=== PATIENT | male | born 1935 | race Caucasian/White ===

== ENCOUNTER 2020-10-21 12:38 | Inpatient (IN) | payer OTHER ==
[~2020-10-21] VITALS: Ht 180.3 cm; Wt 71.4 kg
[2020-10-21 12:42] VITALS: BP 115/56
[2020-10-21 13:03] LABS: ABSOLUTE NEUTROPHILS 5.7 thou/uL (1.4-8.2); EOSINOPHILS 1.4 % (0.0-3.0); HEMATOCRIT 37.7 % (42.0-52.0); HEMOGLOBIN 12.3 gm/dL (14.0-18.0); LYMPHOCYTES 15.3 % (24.0-44.0); MCH 32.4 pg (26.0-34.0); MCHC 32.7 g/dL (28.0-37.0); MONOCYTES 6.1 % (1.0-8.0); PLATELET COUNT 173 thou/uL (150-400); POLYS 76.2 % (36.0-66.0); RBC 3.81 mil/uL (4.50-6.00); RDW 14.7 % (10.5-14.5); WBC 7.5 thou/uL (4.0-11.0)
[2020-10-21 13:14] LABS: CALCIUM 8.8 mg/dL (8.5-10.1); CREATININE 1.4 mg/dL (0.7-1.3); POTASSIUM 4.8 mmol/L (3.5-5.1)
[2020-10-21 13:20] LABS: ALBUMIN 2.6 g/dL (3.4-5.0); TOTAL BILIRUBIN 0.4 mg/dL (0.2-1.0); TOTAL PROTEIN 6.6 g/dL (6.4-8.2)
[2020-10-21 13:25] LABS: INR 1.11
[2020-10-21 16:01] VITALS: BP 102/49
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
[2020-10-21] MEDS ORDERED: CALCIUM PO ×2 (16:44)
[2020-10-21] MEDS ORDERED: METOPROLOL PO ×2 (16:45)
[2020-10-21] MEDS ORDERED: SYNTHROID PO ×2 (16:45)
[2020-10-21] MEDS ORDERED: MECLIZINE PO ×2 (16:45)
[2020-10-21 16:46] VITALS: BP 106/52
[2020-10-21] MEDS ORDERED: ADULT LOW DOSE81 MG PO ×2 (16:46)
[2020-10-21] MEDS ORDERED: LEVOTHYROXINE25 MC1 PO ×2 (17:28)
[2020-10-21] MEDS ORDERED: MECLIZINE HCL25 M1 PO ×2 (17:28)
[2020-10-21] MEDS ORDERED: TOPROL XL25 MG PO ×2 (17:29)
[2020-10-21] MEDS ORDERED: DULCOLAX STOOL100 M1 PO ×2 (17:30)
[2020-10-21] MEDS ORDERED: ATORVASTATIN CA80 MG PO ×2 (17:31)
[2020-10-21 17:38] VITALS: BP 112/54
--- NOTE | 2020-10-21 18:41 | NUR ---
ASSUMED PT CARE AT 1700 FROM ED. PT IS ALERT & ORIENTED X4. PT HAS IV SITE ON R FA SALINE LOCKED. FINISHED ADMISSION AND UPDATED MEDICATION LISTS. PT STATED HE USES WALKER, WHEELCHAIR AND O2 AT HOME. PT WILL BE NPO AFTER MIDNIGHT FOR EGD TOMORROW MORNING. PT HAS BEDSIDE COMMODE. PT FAMILY WAS AT THE BEDSIDE. NO C/O OF PAIN, NAUSEA AND VOMITING. PT ON THE BED, BED ON THE LOWEST POSITION, SIDE RAILS UP, CALL LIGHT WITHIN REACH. WILL CONTINUE TO MONITOR PT. FOLLOW POC.
[2020-10-21 19:39] VITALS: BP 99/62
[2020-10-22 02:24] LABS: HEMATOCRIT 29.6 % (42.0-52.0); MCH 32.7 pg (26.0-34.0); MCHC 32.9 g/dL (28.0-37.0); MCV 99.4 fL (80.0-100.0); RBC 2.98 mil/uL (4.50-6.00); RDW 14.8 % (10.5-14.5); WBC 7.4 thou/uL (4.0-11.0)
[2020-10-22 02:33] LABS: HEMOGLOBIN 9.8 gm/dL (14.0-18.0)
[2020-10-22 02:47] LABS: ALBUMIN 1.9 g/dL (3.4-5.0); CALCIUM 7.6 mg/dL (8.5-10.1); CREATININE 1.1 mg/dL (0.7-1.3); TOTAL BILIRUBIN 0.2 mg/dL (0.2-1.0); TOTAL PROTEIN 5.1 g/dL (6.4-8.2)
--- NOTE | 2020-10-22 07:08 | EKG ---
[address] [address] ELECTROCARDIOGRAM REPORT Name: ELIZABETH SUÁREZ Room #: 455-P [facility] IN ..#: [id number] Admission: 10/21/20 Attend Phys: Juan Carlos Romero MD Discharge: Date of : 37 Report #: [id number] [facility] ED Test Date: 2020-10-21 Test Time: 12:50:20 Pat Name: ELIZABETH SUÁREZ Department: Room: [facility] Gender: M Doctor Of Veterinary Medicine: leo : 1935 Requested By: Micky Vilchis Order Number: [id number] MD: Gopi aRmesh Measurements Intervals [place] Rate: 72 P: 34 OK: 216 QRS: 108 QRSD: 95 T: 56 QT: 387 QTc: 424 Interpretive Statements Sinus arrhythmia Multiple ventricular premature complexes Borderline prolonged OK interval Right axis deviation Nonspecific T abnormalities, anterior leads No previous ECG available for comparison Electronically Signed On 10-22-2020 7:08:43 CDT by Gopi Ramesh [email or web address] <ELECTRONICALLY SIGNED> By: Gopi Ramesh MD, [facility] 10/22/20 0708 1250 1250 Gopi Ramesh MD, FACC /EPI
--- NOTE | 2020-10-22 07:45 | NUR ---
Pt. rested quietly during the night when checked on during frequent rounds. He offers o c/o pain. Bed alarm is on.
[2020-10-22 09:03] VITALS: BP 120/65
--- NOTE | 2020-10-22 11:54 | NUR ---
PT ADMITTED RELATED TO LOWER GI BLEED AND WEAKNESS. CM REVIEWED CHART AND SPOKE WITH CARE TEAM. CM MET WITH PT AT BEDSIDE THIS DAY. PT APPEARS TO BE A&O X4. CM ROLE INTRODUCED. PT INDICATED HE RESIDES IN A TRAILOR ALONE WITH 5 STEPS TO ENTER AND NO STEPS INSIDE. PT INDICATED HE HAS A 4WW FOR USE AT HOME. PT HAS HOME 02 THROUGH [facility] AND HAD WORN 3L AND BUMPS IT UP WHEN HE AMBULATES. 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 PT INDICATED HIS PCP IS DR. MARTÍN SPAULDING. PT INDICATED HE HAD BEEN AT [facility] LAST WEEK. PT INDICATED HE HAD [facility] IN THE PAST AND WOULD WANT TO USE THEM UPON DC. CARE TEAM INDICATED THAT PT WILL LIKELY BE MEDIALLY STABLE TO DC HOME WITH HH TOMORROW. CM FAXED REFERRAL TO [facility] THEY CAN ACCEPT TO WITH [facility] SOC RASHAUN OR PETE. FAX ORDERS TO .
--- NOTE | 2020-10-22 11:55 | NUR ---
A/O X 4. On 3 L 02 @ home. X1 with walker. Stool is still dark. Right forearm and right AC IV patent, and flushes well, dressing dry, clean and intact. NS fluids infusing @ 75mls/hR. He is going to have a colonoscopy today. EGD completed.
[2020-10-22 15:13] VITALS: BP 103/47
--- NOTE | 2020-10-22 17:17 | NUR ---
Patient goes by "CARLOS". A/O X 4 on 3 L o2 via nasal cannula and also on at home. One assist with a walker. Stools dark. Right forearm and Right AC patent, dressing dry, clean and intact. Patient is set to d/c home tomorrow with HH per case management.
[2020-10-22 19:55] VITALS: BP 121/44
--- NOTE | 2020-10-23 04:16 | NUR ---
TODAY THIS PT HAS BEEN IN HIS ROOM ASLEEP FOR MOST OF THE NIGHT WITH STABLE vs AND NO STATED PAIN. HE HAS BEEN TOLERATING HIS FLUIDS AND 3L OF OXYGEN WELL. HE TRIED TO HAVE A BM BUT TO NO AVAIL. HE DOES HAVE SOME SOB WITH EXERTION. HE HAS BEEN USING THE URINAL WELL.
[2020-10-23 06:17] LABS: HEMATOCRIT 29.4 % (42.0-52.0); HEMOGLOBIN 9.6 gm/dL (14.0-18.0); MCH 32.5 pg (26.0-34.0); MCHC 32.8 g/dL (28.0-37.0); MCV 98.9 fL (80.0-100.0); RBC 2.97 mil/uL (4.50-6.00); RDW 14.5 % (10.5-14.5); WBC 8.3 thou/uL (4.0-11.0)
[2020-10-23 08:02] VITALS: BP 123/49
[2020-10-23] MEDS ORDERED: PROTONIX 20 MG20 M1 PO ×2 (09:05)
--- NOTE | 2020-10-23 12:16 | NUR ---
Assumed pt care this am, pt is weak and is on 3 liters of O2 via NC slight movement pt is SOB. No bleeding noted, diet and medications are tolerated well.
[2020-10-23 17:02] VITALS: BP 115/70
[2020-10-23 20:24] VITALS: BP 134/76
[2020-10-24] VITALS (23 sets, daily range): BP systolic 82–139; BP diastolic 48–94
--- NOTE | 2020-10-24 04:22 | NUR ---
PATIENT AAOX4 RESTING IN HIS ROOM. STATES THAT HE HAS NO PAIN AT THIS TIME. PT STATES THAT HE DOESNOT THINK THAT HE IS READY TO TRANSFER THIS AM. STATES THAT HE IS STILL HAVING DIFFICULTY BREATHING WITH AMBULATION. PT IS CURRENTLY ON 3L NC. PATIENT GETS SHORT OF BREATH WHEN TRYING TO SPEAK WITH STAFF. PT DOES WELL WHEN RESTING AT EASE. NO S/S OF DISTRESS ARE NOTED. PATIENT TOOK MEDICATIONS PRESCRIBED. WILL CONTINUE TO MONITOR FOR CHANGES IN STATUS.
--- NOTE | 2020-10-24 08:22 | NUR ---
DR. CARLOS CONSULTED DUE TO PATIENT WEAKNESS. PATIENT'S INFORMATION REVIEWED THIS DATE BY GANESH THORNTON NP WITH DR. CARLOS. PATIENT IS TOO HIGH LEVEL FOR 5N ACUTE REHAB. HOME WITH HOME HEALTH RECOMMENDED, BUT IF PHYSICIAN FEELS PATIENT IS NOT READY TO RETURN HOME, THEN SKILLED NURING IS RECOMMENDATION. THANK YOU FOR THIS REFERRAL.
[2020-10-24 09:51] LABS: BE(vivo) 6.3 mmol/L (-2 to +3); HCO3 34.7 mmol/L (22.0-26.0); PCO2 72.3 mmHg (35.0-45.0); PO2 99.9 mmHg (80.0-100.0); pH 7.299 (7.360-7.450); sO2 96.7 % (92.0-98.0)
[2020-10-24 09:59] LABS: HEMATOCRIT 31.3 % (42.0-52.0); HEMOGLOBIN 10.3 gm/dL (14.0-18.0); MCH 32.1 pg (26.0-34.0); MCHC 32.8 g/dL (28.0-37.0); MCV 97.8 fL (80.0-100.0); RBC 3.2 mil/uL (4.50-6.00); WBC 10.5 thou/uL (4.0-11.0)
[2020-10-24 10:27] LABS: ANION GAP < 0 mmol/L (7-16); BUN 10 mg/dL (7-18); CALCIUM 7.9 mg/dL (8.5-10.1); CHLORIDE 106 mmol/L (98-107); CO2 36 mmol/L (21-32); CREATININE 1.1 mg/dL (0.7-1.3); GLUCOSE 143 mg/dL (74-106); POTASSIUM 3.5 mmol/L (3.5-5.1); SODIUM 141 mmol/L (136-145)
[2020-10-24 10:31] LABS: BE(vivo) 10.1 mmol/L (-2 to +3); HCO3 35.8 mmol/L (22.0-26.0); PCO2 54.2 mmHg (35.0-45.0); pH 7.438 (7.360-7.450); sO2 62.2 % (92.0-98.0)
--- NOTE | 2020-10-24 12:48 | NUR ---
PT TRANSFERRED TO ROOM 248 IN THE ICU. PT ON BIPAP AT 40% FIO2. PT ORIENTED TO ROOM AND UNIT, BED LOW AND LOCKED, SIDE RAILS UPX 3, CALL LIGHT IN REACH, TELE APPLIED. PT REFUSED SCDS AND DR. BAZZI INFORMED AT BEDSIDE. WILL CONTINUE TO ASSESS.
[2020-10-24 14:54] LABS: BE(vivo) 7.6 mmol/L (-2 to +3); HCO3 33.3 mmol/L (22.0-26.0); pH 7.416 (7.360-7.450); sO2 92.4 % (92.0-98.0)
--- NOTE | 2020-10-24 22:57 | NUR ---
RN WENT TO PLACE NO CODE BRACELET ON PT DR ORDER OF STATUS CHANGE TO NO CODE. PT ASKED WHAT NO CODE MEANT, AND i EXPLAINED THAT IF HEART/BREATHING STOP THERE WOULD BE NO INTERVENTION/NATURAL . PT STATES HE DID NOT UNDERSTAND THAT SAYING NO TO THE VENTILATOR MEANT NO RESUSITATION. IN REGARDS TO HIS BREATHING "STATES HE TIRED OF FIGHTING THIS", BUT WANTS TO BE CODED FOR NOW. DISCUSSED WITH BREAKFAST SERVER, ORDER PLACED FOR FULL CODE, DNI
--- NOTE | 2020-10-24 23:29 | NUR ---
INFORMED PT THAT SPOKE WITH MANAGEMENT ASSISTANT, AND DISCUSSED YOUR WISHES OF NO VENTILATOR, AND WILL RESUSCITATE YOUR HEART IF STOPPED. IN RESPONSE PT SAID "i HAVE BEEN THINKING ABOUT THIS, AND I DO NOT WANT TO CONTINUE FIGHTING THIS. BRING BACK THE BRACELET TO PUT ON ME" REITERATED THE NO CODE BRACELET AND HE SAID "YES". 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 02SAT 98%. INFORMED MANAGEMENT ASSISTANT AND ORDER WAS CHANGED BACK TO NO CODE.
[2020-10-25 00:29] VITALS: BP 114/60
[2020-10-25 05:37] LABS: HEMOGLOBIN 8.6 gm/dL (14.0-18.0); MCH 32.7 pg (26.0-34.0); MCHC 32.9 g/dL (28.0-37.0); MCV 99.3 fL (80.0-100.0); RBC 2.62 mil/uL (4.50-6.00); RDW 14.7 % (10.5-14.5); WBC 2.5 thou/uL (4.0-11.0)
[2020-10-25 05:49] LABS: ANION GAP < 0 mmol/L (7-16); BUN 13 mg/dL (7-18); CALCIUM 7.9 mg/dL (8.5-10.1); CHLORIDE 108 mmol/L (98-107); CO2 37 mmol/L (21-32); GLUCOSE 132 mg/dL (74-106); POTASSIUM 4.4 mmol/L (3.5-5.1); SODIUM 144 mmol/L (136-145)
--- NOTE | 2020-10-25 06:25 | NUR ---
ORDER PER DR TO TRANSFER PT TO 2N-PT SAYS IT IS TOO EARLY TO CALL DAUGHTER, HE WILL CONTACT HER LATER. 02SAT 97 ON BIPAP. STATES BREATHING COMFORTABLE. COLOR REMAINS PALE-NO ACTIVE BLEEDING NOTED, NO STOOLS/EMESIS OR C/O OF PAIN. REPORT CALLED TO KODAK HANSEN. TRANSFER WITH BELONGINGS PHONE, IPAD, CHARGERS, DENTURES, GLASSES, DUFFLE AND TOTE BAGS
--- NOTE | 2020-10-25 07:29 | EKG ---
[address] [address] ELECTROCARDIOGRAM REPORT Name: ELIZABETH SUÁREZ Room #: 216-P [facility] IN ..#: [id number] Admission: 10/21/20 Attend Phys: Juan Carlos Romero MD Discharge: Date of : 37 Report #: [id number] [facility] Test Date: 2020-10-24 Test Time: 09:57:57 Pat Name: ELIZABETH SUÁREZ Department: Room: 216 Gender: M Linoleum Layer: GARETT : 1935 Requested By: Pankaj Womack Order Number: [id number] MD: Gopi Ramesh Measurements Intervals [place] Rate: 102 P: 0 IN: 240 QRS: -24 QRSD: 91 T: 135 QT: 403 QTc: 526 Interpretive Statements Sinus tachycardia Multiple premature complexes, vent & supraven Prolonged IN interval Probable left atrial enlargement Borderline left axis deviation Nonspecific T abnrm, anterolateral leads Prolonged QT interval Compared to ECG 10/21/2020 12:50:20 Prolonged QT interval now present Sinus arrhythmia no longer present Ventricular premature complex(es) no longer present Electronically Signed On 10-25-2020 7:29:41 CDT by Gopi Ramesh [email or web address] <ELECTRONICALLY SIGNED> By: Gopi Ramesh MD, FACC 10/25/20 0729 Gopi Ramesh MD, [facility] /EPI
--- NOTE | 2020-10-25 07:39 | NUR ---
PATIENT TRANSFER TO ICU ON 10/24 D/T INCREASED O2 NEEDS, ON BIPAP. WILL PLACE ON HOLD, REQUEST NEW O.T. ORDERS WHEN APPROPRIATE FOR OT INTERVENTIONS TO RESUME. PATIENT NOW TRANSFER TO CCU BUT STILL NEED NEW ORDERS D/T TRANSFER TO ICU/CHANGE IN MEDICAL STATUS. THANK YOU.
[2020-10-25 08:00] VITALS: BP 127/75
--- NOTE | 2020-10-25 08:43 | NUR ---
Pt TRANSFERRED TO ICU ON 10/24/20 D/T INCREASED O2 NEEDS. D/T TRANSFER TO HIGHER LEVEL OF CARE YESTERDAY AND BACK TO CCU, WILL NEED NEW ORDERS TO RESUME PT INTERVENTIONS IF/WHEN Pt APPROPRIATE TO PARTICIPATE.
[2020-10-25 12:00] VITALS: BP 105/54
--- NOTE | 2020-10-25 15:10 | NUR ---
Patient on continuous BIPAP. He transferred to CCU from . Therapy orders need to be reordered. Updated phys.
[2020-10-25 16:00] VITALS: BP 119/58
--- NOTE | 2020-10-25 17:19 | NUR ---
ASSESSMENT CHARTED - MEDS PER MAY - FANI FLUIDS - UNABLE TO REMOVE BIPAP PT RR UP TO THE 40'S AND WORK OF BREATHING INSCREASES. MEDS PER MAY - IV FLUIDS CONT ORDERED. ACCUCHECKS CHARTED - DR WARREN NOTIFIED THAT BIPAP REMAINED ON STATED WE COULD TRYING OTHER SOURCES PATIENT STATED THAT HE WAS GETTING VERY HUNGRY. FAMILY INTO VISIT THIS SHIFT. NO CO'S AT THE PRESENT TIME.
--- NOTE | 2020-10-25 18:45 | 2DMMODE ---
[facility] [place] [address] 2 D/M-MODE ECHOCARDIOGRAM Name: DEVIJUANELIZABETH Room #: 216-P [facility] IN ..#: [id number] Admission: 10/21/20 Attend Phys: Juan Carlos Romero MD Discharge: Date of : 36 Report #: [id number] THIS REPORT FOR: cc: Britton Hankins MD, Jan MD Lundgren, Craig H. MD [facility] ~ APPROVED REPORT Study performed: 10/25/2020 11:36:15 EXAM: Comprehensive 2D, Doppler, and color-flow Echocardiogram Patient Location: Bedside Room #: 216 Status: routine BSA: 1.89 HR: 58 bpm BP: 114/60 mmHg Rhythm: Bradycardia Other Information Study Quality: Good Indications Diabetes Dyspnea Hypertension/HDD 2D Dimensions RVDd: 51.05 mm IVSd: 9.83 (7-11mm) LVOT Diam: 24.17 (18-24mm) LVDd: 51.05 mm PWd: 10.06 (7-11mm) Ascending Ao: 38.94 (22-36mm) LVDs: 34.53 (25-40mm) Left Atrium: 36.98 (27-40mm) Aortic Root: 34.79 mm IVC: 21.00 mm Volumes Left Atrial Volume (Systole) Single Plane 4CH: 41.65 mL Single Plane 2CH: 56.34 mL LA ESV Index: 30.00 mL/m2 Aortic Valve AoV Peak Christ.: 1.15 m/s AO Peak Gr.: 5.32 mmHg LVOT Max P.12 mmHg [facility] [address] [place] [address] 2 D/M-MODE ECHOCARDIOGRAM Name: ELIZABETH SUÁREZ Room #: 216-P [facility]#: [id number] Admission: 10/21/20 Attend Phys: Juan Carlos Romero MD Discharge: Date of : 36 Report #: [id number] LVOT Max V: 0.88 m/s RUFUS Vmax: 3.51 cm2 Mitral Valve E/A Ratio: 0.7 MV Decel. Time: 381.84 ms MV E Max Christ.: 0.57 m/s MV A Christ.: 0.78 m/s MV PHT: 110.73 ms IVRT: 119.95 ms Pulmonary Valve PV Peak Christ.: 1.05 m/s PV Peak Gr.: 4.41 mmHg Pulmonary Vein P Vein S: 0.41 m/s P Vein A: 0.24 m/s P Vein D: 0.24 m/s P Vein A Dur.: 129.2 msec P Vein S/D Ratio: 1.71 Tricuspid Valve TR Peak Christ.: 3.09 m/s TR Peak Gr.: 38.21 mmHg PA Pressure: 48.00 mmHg Left Ventricle The left ventricle is normal size. There is normal LV segmental wall motion. There is normal left ventricular wall thickness. The left ventricular systolic function is normal. The left ventricular ejection fraction is within the normal range. LVEF is 55%. Mild diastolic dysfunction Right Ventricle Right ventricle is dilated. The right ventricular systolic function is borderline normal. Atria Left atrium is at the upper limits of normal. Right atrium is not well visualized. Aortic Valve The aortic valve is moderately calcified. No aortic regurgitation is present. There is no aortic valvular stenosis. Mitral Valve The mitral valve is normal in structure. Mild mitral regurgitation. No evidence of mitral valve stenosis. [facility] [address] [place] [address] 2 D/M-MODE ECHOCARDIOGRAM Name: ELIZABETH SUÁREZ Vasquez Room #: 216-P [facility] IN [facility]#: [id number] Admission: 10/21/20 Attend Phys: Juan Carlos Romero MD Discharge: Date of : 37 Report #: [id number] Tricuspid Valve The tricuspid valve is normal in structure. There is mild tricuspid regurgitation. Estimated pulmonary artery pressure of 45 mmHg. There is moderate pulmonary hypertension. Pulmonic Valve The pulmonary valve is normal in structure. Mild pulmonic regurgitation. Great Vessels The aortic root is normal in size. IVC is dilated and collapses <50% with inspiration. Pericardium There is no pericardial effusion. <Conclusion> The left ventricular systolic function is normal. There is normal LV segmental wall motion. LVEF is 55%. Mild diastolic dysfunction Right ventricle is dilated. The aortic valve is moderately calcified. No aortic regurgitation or stenosis The mitral valve is normal in structure. Mild mitral regurgitation. There is mild tricuspid regurgitation. Estimated pulmonary artery pressure of 45 mmHg. There is no pericardial effusion. <ELECTRONICALLY SIGNED> By: Sherwin Camarena MD, FACC 10/25/201843 43 43 Sherwin Camarena MD, FACC /INF
[2020-10-25 20:56] VITALS: BP 124/70
[2020-10-26 00:58] VITALS: BP 118/65
--- NOTE | 2020-10-26 03:43 | NUR ---
Assumed pt care at 1900. Pt is alert and oriented. No sign of distress noted in pt. At the start of the shift, Respirattory was able to wean patient from bipap to nasal cannula, 5L. Pt saturation was at 97%. Pt was stable. At bed time, pt was placed back on bipap for sleep. No sign of distress noted. Assessment completed and documented. Scheduled meds administered to pt, tolerated PO intake. No acute events through the night. Continue to monitor. No further needs at this time.
[2020-10-26 05:18] VITALS: BP 125/70
[2020-10-26 08:27] VITALS: BP 125/74
[2020-10-26 11:28] VITALS: BP 133/89
--- NOTE | 2020-10-26 11:35 | NUR ---
met with patient and at bedside. Patient resides at home and on disability. interested in AD and FMLA. FMLA paper work on chart. 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 works at [employer]. Gave information on AD. Patient admits with weakness and GI bleed. Casemgt following
[2020-10-26 16:13] VITALS: BP 105/62
--- NOTE | 2020-10-26 17:37 | NUR ---
Patient evaled by N acute rehab who reports patient has interest in [facility]. Met with patient who reports he is interested in [facility] for rehab. Discussed eval from . patient beleved it was outpatient therapy. He reports he lives too far to transport to/from. Reviewed inpatient rehab. Patient wants to discuss with family.
--- NOTE | 2020-10-26 18:27 | NUR ---
ASSESSMENT CHARTED - MEDS PER MAY - PT TAKEN OFF BIPAP THIS AM AND PLACED ON 4 LITERS AND HAS BEEN SATING IN THE MID TO UPPER 90'S PT SEEN BY PHY/ OCC THERAPY AND UP TO [place] - BECAME EXTREMELY SOB SAT DROPPED INTO THE 80'S O2 TURNED UP TO 6 L. PT RECOVERED WELL WHEN RESTING AND WAS ABLE TO HAVE O2 TURNED BACK DOWN. PT UP IN THE CHAIR - FANI DIET AND FLUIDS. ACCUCHECKS CHARTED - NO CO'S OF PAIN OR NAUSEA. FAMILY INTO VISIT . PT WITH NO CO'S AT THE PRESENT TIME.
[2020-10-26 19:53] VITALS: BP 137/71
[2020-10-27 03:13] LABS: ABSOLUTE NEUTROPHILS 12.6 thou/uL (1.4-8.2); BASOPHILS 0.1 % (0.0-2.0); HEMATOCRIT 25.5 % (42.0-52.0); HEMOGLOBIN 8.2 gm/dL (14.0-18.0); LYMPHOCYTES 3.4 % (24.0-44.0); MCH 32.1 pg (26.0-34.0); MCV 100.1 fL (80.0-100.0); MONOCYTES 2.6 % (1.0-8.0); PLATELET COUNT 151 thou/uL (150-400); POLYS 93.9 % (36.0-66.0); RBC 2.54 mil/uL (4.50-6.00); RDW 15.1 % (10.5-14.5)
[2020-10-27 03:22] LABS: WBC 14.3 thou/uL (4.0-11.0)
[2020-10-27 03:48] LABS: ALBUMIN 2.1 g/dL (3.4-5.0); CALCIUM 7.9 mg/dL (8.5-10.1); CREATININE 1.1 mg/dL (0.7-1.3); POTASSIUM 4.4 mmol/L (3.5-5.1); TOTAL BILIRUBIN 0.2 mg/dL (0.2-1.0); TOTAL PROTEIN 5.2 g/dL (6.4-8.2)
[2020-10-27 03:49] VITALS: BP 134/70
--- NOTE | 2020-10-27 07:15 | NUR ---
ON O2 4L ALL NIGHT.DENIES PAIN.VOIDS PER URINAL.MONITOR SHOWS SR WITH PVC'S.POC CONTINUED.
[2020-10-27 07:30] VITALS: BP 120/63
[2020-10-27 12:00] VITALS: BP 116/61
[2020-10-27] MEDS ORDERED: IPRAT-ALBUT 0.5-3 ML INH ×2 (12:55)
[2020-10-27] MEDS ORDERED: PREDNISONE 20 M20 MG PO ×2 (12:55)
[2020-10-27] MEDS ORDERED: AUGMENTIN 875-1 EACH PO ×2 (12:55)
--- NOTE | 2020-10-27 13:31 | NUR ---
Sanjiv ny met with patient and reviewed acute rehab. He was undecided. Casemgt met with patient and discussed post acute care. Patient reports he is considering [facility] as it is closer to home. Referral to [facility]. His grandson at bedside. Updated regarding dc planning 5N vs skilled.
[2020-10-27 15:00] VITALS: BP 137/76
--- NOTE | 2020-10-27 19:11 | NUR ---
assessment s charted - meds as per rosalinda - bianca diet and fluids. pt seen by phys and occ therapy - up to the chair sob and desats with activity. family into visit today. pt transfered via wheelchair up to the rehab unit this evening - report called to receiving unit. tranfere via wheelchair with o2 insitu no cos' at time of transfer.
[2020-10-28] MEDS ORDERED: PREDNISONE 20 M20 MG PO ×2 (17:11)
[2020-10-28] MEDS ORDERED: IPRAT-ALBUT 0.5-3 ML INH ×2 (17:11)
[2020-10-28] MEDS ORDERED: LASIX 40 MG TAB40 MG IV ×2 (17:14)
== END 2020-10-27 18:21 | DRG 377 ==
LOC: ER 12:38 → EROBS 16:07 → 4W 16:07 → ICU 10-24 12:40 → 2N 10-25 06:08
PROVIDERS: Hospitalist; Internal Medicine; Internal Medicine Pulmonary Disease; Nurse Practitioner; Pediatrics; Student in an Organized Health Care Education/Training Program; ADMIT Hospitalist; ATTEND Hospitalist
PROC: 0DB78ZX Excision of Stomach, Pylorus, Via Natural or Artificial Opening Endoscopic, Diagnostic (ICD-10-PCS; principal; 2020-10-22)
PROC: 5A09357 Assistance with Respiratory Ventilation, Less than 24 Consecutive Hours, Continuous Positive Airway Pressure (ICD-10-PCS; 2020-10-24)
PROC: 5A09357 Assistance with Respiratory Ventilation, Less than 24 Consecutive Hours, Continuous Positive Airway Pressure (ICD-10-PCS; 2020-10-25)
PROC: 5A09357 Assistance with Respiratory Ventilation, Less than 24 Consecutive Hours, Continuous Positive Airway Pressure (ICD-10-PCS; 2020-10-26)
DX: K25.4 Chronic or unspecified gastric ulcer with hemorrhage (principal); J96.21 Acute and chronic respiratory failure with hypoxia; J18.9 Pneumonia, unspecified organism; J96.22 Acute and chronic respiratory failure with hypercapnia; N17.0 Acute kidney failure with tubular necrosis; G93.40 Encephalopathy, unspecified; D62 Acute posthemorrhagic anemia; E46 Unspecified protein-calorie malnutrition; K22.11 Ulcer of esophagus with bleeding; Z20.822 Contact with and (suspected) exposure to COVID-19; E03.9 Hypothyroidism, unspecified; I50.9 Heart failure, unspecified; J84.10 Pulmonary fibrosis, unspecified; E11.9 Type 2 diabetes mellitus without complications; I11.0 Hypertensive heart disease with heart failure; E78.5 Hyperlipidemia, unspecified; R41.0 Disorientation, unspecified; D69.6 Thrombocytopenia, unspecified; R53.81 Other malaise; Z79.82 Long term (current) use of aspirin; Z86.010 Personal history of colon polyps; Z80.0 Family history of malignant neoplasm of digestive organs; Z68.22 Body mass index [BMI] 22.0-22.9, adult; Z79.899 Other long term (current) drug therapy
CPT/HCPCS: 10040; 10078; 10081; 10204; 62110; 62900; 70005

== ENCOUNTER 2020-10-27 14:46 | Inpatient (IN) | payer OTHER ==
[~2020-10-27] VITALS: Ht 180.3 cm; Wt 75.4 kg
--- NOTE | ~2020-10-27 | PLAN ---
[facility] [place] [address] REHAB UNIT PLAN OF CARE Name: ELIZABETH SUÁREZ Room #: 503-P [facility] IN M.R.#: [id number] Admission: 10/27/20 Attend Phys: Javon Goodman MD Discharge: 10/29/20 Date of : 36 Report #: [id number] THIS REPORT FOR: cc: Britton Hankins MD, Jan MD Smithson,Javon Weems MD ~ DATE OF SERVICE: 10/29/2020 The overall plan of care will not be completed on the patient as he is on day 3 of his inpatient rehabilitation stay and has had significant problems as far as acute medical status. He was transferred back to acute care yesterday, but unfortunately no beds were available with the COVID surge. He has acute respiratory failure with pulmonary fibrosis and a markedly abnormal chest x-ray and has been needing ongoing BiPAP. Therapies were on hold all day yesterday due to medical status. Discussion was held with the hospitalist nurse practitioner and plans are already underway and discharge orders have already been entered for him to return back to acute care this afternoon. Please see the discharge summary from today. By: [id number] Javon Goodman MD /nt
[~2020-10-27 14:46] MED LIST: ADULT LOW DOSE81 MG PO; ATORVASTATIN CA80 MG PO; AUGMENTIN 875-1 EACH PO; CALCIUM PO; DULCOLAX STOOL100 M1 PO; IPRAT-ALBUT 0.5-3 ML INH; LEVOTHYROXINE25 MC1 PO; MECLIZINE HCL25 M1 PO; MECLIZINE PO; METOPROLOL PO; PREDNISONE 20 M20 MG PO; PROTONIX 20 MG20 M1 PO; SYNTHROID PO; TOPROL XL25 MG PO
[2020-10-27 18:45] VITALS: BP 155/87
--- NOTE | 2020-10-28 00:18 | NUR ---
PT ADMITTED TO 5N THIS EVENING. PT ASSESSMENT COMPLETED AND VSS. SAT AT THE BEGINNING OF SHIFT 95% ON 4L NC. WITH EXERTION PT SAT DROPPED DOWN INTO THE 70s. CONTACTED CONSERVATION PLANNER YARI AND RESPIRATORY REGARDING SAT CONCERNS. BREATHING TREATMENT GIVEN AND SAT NOW UP IN THE 90S. PT SLEEPING WELL. ADMITT AND HX COMPLETED. CONSENTS SIGNED. WILL CONTINUE TO MONITOR FREQUENTLY.
--- NOTE | 2020-10-28 04:41 | NUR ---
BRUCE GREENBERG UP TO SEE PT AND RT UP TO SEE PT. PT SAT WNL BUT PT DID DESAT WITH EXERTION. PER BRUCE GREENBERG HOLD BIPAP TONIGHT. PT SLEEPING WELL. WILL CONTINUE TO MONITOR FREQUENTLY.
[2020-10-28 06:50] LABS: HEMATOCRIT 27.6 % (42.0-52.0); HEMOGLOBIN 8.9 gm/dL (14.0-18.0); MCH 32.1 pg (26.0-34.0); MCHC 32.1 g/dL (28.0-37.0); RBC 2.76 mil/uL (4.50-6.00); RDW 15.3 % (10.5-14.5); WBC 18.3 thou/uL (4.0-11.0)
[2020-10-28 07:31] LABS: BE(vivo) 9.9 mmol/L (-2 to +3); HCO3 37.1 mmol/L (22.0-26.0); PCO2 65.9 mmHg (35.0-45.0); PO2 74.6 mmHg (80.0-100.0); pH 7.368 (7.360-7.450); sO2 94.1 % (92.0-98.0)
--- NOTE | 2020-10-28 07:36 | NUR ---
PT DID NOT GET UP BUT GRABBED HIS URINAL AT HIS BEDSIDE THIS MORNING. PT DESATED FROM THAT SMALL AMOUNT OF EXERTION. CONTACTED RT AND PT WAS GIVEN A BREATHING TREATMENT. PT DID NOT RECOVER AFTER TREATMENT AND SAT DROPPED DOWN TO 57. CONTACTED RAT TEAM AND BRUCE GREENBERG/SAMM SUP. PT PUT ON BIPAP PER AM ORDERS FROM DR WARREN. STAT ABG, CHEST XRAY, LABS WERE ORDERED AND COMPLETED. ONETIME DOSE OF 125 IVP SOLU-MEDROL GIVEN ORDERED BY BRUCE GREENBERG. PT APPEARS MORE COMFORTABLE. REPORT GIVEN TO ONCOMING RN. ONCOMING RN WILL FOLLOW RESULTS OF ALL RAT TEAM ORDERS AND CONTACT DOCTORS NEEDED. DR WARREN PLANS TO COME SEE PT THIS MORNING.
[2020-10-28 07:45] VITALS: BP 144/66
[2020-10-28 08:00] VITALS: BP 144/66
[2020-10-28 08:35] LABS: CALCIUM 8.4 mg/dL (8.5-10.1); CREATININE 1.2 mg/dL (0.7-1.3)
--- NOTE | 2020-10-28 10:22 | NUR ---
WOUND CONSULT; THE BILATERAL BUTTOCKS PRESSURE INJURIES WITH BRUISING CONSISTANT WITH A DEEP TISSUE INJURY. NO S/S OF INFECTION OR DRAIAGE SEEN. THE PATIENT CAN TURN HIMSELF AND UNDERSTANDS THE WOUND POC. RECOMMENDATIONS; -LOW AIR LOSS PUMP -TURN Q2H -APPLY ZGUARD BID/PRN
--- NOTE | 2020-10-28 12:15 | NUR ---
Chart review. Unable to visit with sara r/richy he is requiring use of bipap. Noted there was rapid response called last night and he was on oxygen per nasal cannula and changed over the bipap. He res home alone, with 5 steps to enter, no steps inside the home. 02 at home 3L. manage own medication. Been to [facility] in past, and [facility] in the past. will cont following as needed for dc needs.
--- NOTE | 2020-10-28 12:19 | NUR ---
ASSUMED CARE OF PT AT 0700. PT WAS A RAPID RESPONSE CALL ON WEB MARKETING COORDINATOR. PT IS NOW ON BIPAP. PT WAS GIVEN IV LASIX AND HAS BEEN VOIDING FREQUENTLY. THIS NURSE ALONG WITH RT GAVE PT PO MEDS, PT DID NOT TOLERATE HAVING BIPAP OFF FOR ONLY A FEW MINUTES. PT REMAINS ON BIPAP AT THIS TIME.
[2020-10-28] MEDS ORDERED: PREDNISONE 20 M20 MG PO ×2 (17:11)
[2020-10-28] MEDS ORDERED: IPRAT-ALBUT 0.5-3 ML INH ×2 (17:11)
[2020-10-28] MEDS ORDERED: LASIX 40 MG TAB40 MG IV ×2 (17:14)
[2020-10-28 19:09] VITALS: BP 132/64
--- NOTE | 2020-10-29 02:32 | NUR ---
PT ASSESSMENT COMPLETED AND VSS. BIPAP IN PLACE AND PT APPEARS COMFORTABLE. HELD HS MEDS ORDERED. PT UNABLE TO TOLERATE BEING OFF OF BIPAP AT ALL. DAY DR WILL NEED TO LOOK AT OTHER MEDICATION OPTIONS FOR PT. PT SLEEPING WELL. ASST WITH REPOSITION. VOIDING PER URINAL. INCONTINENT AT TIMES. LISSY CARE PROVIDED. ZGUARD APPLIED TO BOTTOM WOUND. USED PILLOWS TO KEEP PT OFF OF HIS BOTTOM. WILL CONTINUE TO MONITOR FREQUENTLY. SLEEPING WELL.
[2020-10-29 08:00] VITALS: BP 120/63
--- NOTE | 2020-10-29 09:47 | NUR ---
He cont. to requirer 100% BIPAP, going to be dc to acute when bed is open.
[2020-10-29 09:53] LABS: HEMATOCRIT 28.2 % (42.0-52.0); HEMOGLOBIN 8.8 gm/dL (14.0-18.0); MCH 31.5 pg (26.0-34.0); MCHC 31.2 g/dL (28.0-37.0); MCV 100.9 fL (80.0-100.0); PLATELET COUNT 178 thou/uL (150-400); RBC 2.79 mil/uL (4.50-6.00); RDW 15.7 % (10.5-14.5); WBC 11.8 thou/uL (4.0-11.0)
[2020-10-29 10:07] LABS: BUN 24 mg/dL (7-18); CALCIUM 8.4 mg/dL (8.5-10.1); CHLORIDE 104 mmol/L (98-107); CREATININE 1.1 mg/dL (0.7-1.3); GLUCOSE 81 mg/dL (74-106); POTASSIUM 3.9 mmol/L (3.5-5.1); SODIUM 149 mmol/L (136-145)
[2020-10-29 10:18] LABS: CO2 > 45 mmol/L (21-32)
[2020-10-29 11:17] LABS: ABSOLUTE NEUTROPHILS 10.3 thou/uL (1.4-8.2); NUCLEATED RBCS 3 /100WBC; PLATELET ESTIMATE NORMAL
--- NOTE | 2020-10-29 11:24 | NUR ---
1124 ASSUMED CARE OF PT FROM OVERNIGHT NURSE. PT WAS TRIALED WITH 7 TO 15 L OXYGEN 02 SAT WAS IN LOW 80'S. BUT PT IS CURRENTLY ON BIPAP W SAT AT 92. PT WAS GIVEN IV LASIX AN IV SOLUMEDROL AND TOLERATED THEM WELL. PT TO BE TRANSFERRED TO CCU WHEN ORDERS COMPLETED. PT TOOK PO MEDICATIONS W NO DIFFICULTY. WILL CONT TO MONITOR PT FOR NEEDS.
--- NOTE | 2020-10-29 11:27 | NUR ---
1127 REPORT CALLED TO FRAN ABARCA FOR RM 213.
== END 2020-10-29 13:04 | disposition short-term general hospital (02) | DRG 91 ==
PROVIDERS: Nurse Practitioner; Nurse Practitioner Family; ADMIT Physical Medicine & Rehabilitation; ATTEND Physical Medicine & Rehabilitation
DX: G92 Toxic encephalopathy (principal); J96.21 Acute and chronic respiratory failure with hypoxia; K25.4 Chronic or unspecified gastric ulcer with hemorrhage; J18.9 Pneumonia, unspecified organism; E46 Unspecified protein-calorie malnutrition; D61.818 Other pancytopenia; R53.81 Other malaise; J84.10 Pulmonary fibrosis, unspecified; E11.9 Type 2 diabetes mellitus without complications; E03.9 Hypothyroidism, unspecified; E78.5 Hyperlipidemia, unspecified; Z85.09 Personal history of malignant neoplasm of other digestive organs; K20.90 Esophagitis, unspecified without bleeding; Z66 Do not resuscitate; I50.9 Heart failure, unspecified; Z68.23 Body mass index [BMI] 23.0-23.9, adult
CPT/HCPCS: 10112

== ENCOUNTER 2020-10-29 11:10 | Inpatient (IN) | payer OTHER ==
[~2020-10-29] VITALS: Ht 180.3 cm; Wt 80.9 kg
[~2020-10-29 11:10] MED LIST changes: +LASIX 40 MG TAB40 MG IV
[2020-10-29 13:15] VITALS: BP 119/66
--- NOTE | 2020-10-29 15:15 | NUR ---
1517 PT TRANFERRED TO RM 213 W ASSIST OF RN, TECH AND RT. PT TRANSFERRED W BIPAP AND OWN BED. PT TRANSFERRED TO 213 IN STABLE CONDITION. VERBAL REPORT GIVEN TO LILIBETH.
[2020-10-29 15:45] VITALS: BP 131/63
--- NOTE | 2020-10-29 16:20 | NUR ---
RECEIVED PT FROM Sanjiv; RECEIVED REPORT FROM GALE. PT IS AXOX4, COOPERATIVE; ABLE TO COMPLETE ADMISSION. PT IS ON BIPAP, 50% O2, WITH FULL O2 FACE MASK. SPEECH THERAPY ASSESSED; STATED PT ABLE TO HAVE PUREED DIET WITH THIN LIQUIDS. RT CAME TO ASSESS PT AND FOUND THIN LIQUIDS TO BE INAPPROPROATE FOR PT. DR ZUNIGA CONSULTED. WILL CONTINUE TO ASSESS PT ABILITY TO SWALLOW. FALL PRECAUTIONS IN PLACE. FREQUENT ROUNDING.
[2020-10-29 20:45] VITALS: BP 118/59
[2020-10-30 04:45] VITALS: BP 122/51
--- NOTE | 2020-10-30 05:25 | NUR ---
PT MAKING SLOW PROGRESS TOWARDS GOALS. NOTED CRACKLES IN BOTH LOWER LOBES. PT ABLE TO TOLERATE TRAVEL TO CT, LIE FLAT FOR A FEW MINUTES TO COMPLETE CT OF CHEST. RESULTS ON CHART. NOT ABLE TO SLEEP WITH BIPAP IN PLACE. ON O2 AT 10L PER NC OVERNIGHT WITH O2 SAT 93-99%.
[2020-10-30 07:00] VITALS: BP 129/53
[2020-10-30 11:23] LABS: BUN 26 mg/dL (7-18); CALCIUM 8.2 mg/dL (8.5-10.1); CHLORIDE 104 mmol/L (98-107); CREATININE 1.3 mg/dL (0.7-1.3); GLUCOSE 171 mg/dL (74-106); POTASSIUM 3.5 mmol/L (3.5-5.1); SODIUM 149 mmol/L (136-145)
[2020-10-30 11:27] LABS: CO2 > 45 mmol/L (21-32)
[2020-10-30 11:53] VITALS: BP 116/52
--- NOTE | 2020-10-30 14:29 | NUR ---
PT VERY SOA TODAY AND OT DECIDED TO HOLD EVAL UNTIL 11/01/20 AM. SON PRESENT WITH SON. 15l OXYGEN
[2020-10-30 15:00] VITALS: BP 128/50
[2020-10-30 19:43] VITALS: BP 144/79
--- NOTE | 2020-10-31 04:11 | NUR ---
PT REMAINS WEAK APPEARING. ON 15L/NC,CONT PULSE OX IN PLACE. EASILY GETTING SOA. LASIX GIVEN AND CONDOM CATH APPLIEDWITH GOOD OUTPUT NOTED.LARGE BM X1-BLOODY.ALERT AND ORIENTED, MASHPEE, PLEASANT AND COOPERATIVE.
[2020-10-31 04:21] VITALS: BP 129/54
[2020-10-31 07:40] VITALS: BP 133/54
[2020-10-31 07:56] LABS: BUN 21 mg/dL (7-18); CALCIUM 7.7 mg/dL (8.5-10.1); CHLORIDE 101 mmol/L (98-107); CREATININE 1.2 mg/dL (0.7-1.3); GLUCOSE 132 mg/dL (74-106); POTASSIUM 3.3 mmol/L (3.5-5.1); SODIUM 148 mmol/L (136-145)
[2020-10-31 08:22] LABS: CO2 > 45 mmol/L (21-32)
--- NOTE | 2020-10-31 17:16 | NUR ---
PT DAUGHTER VISITING. STATES SHE WOULD LIKE MORE INFORMATION ON PALLIATIVE/HOSPICE CARE. ALSO STATES IF PT DOES CHOOSE PALLIATIVE CARE, SHE IS NOT ABLE TO TAKE CARE OF HIM AT HOME. WOULD LIKE SW TO ASSIST IN FURTHER DISCUSSIONS/PLACEMENT IF NEEDED. WILL REPORT TO STOKER ERECTOR AND SERVICER RN FOR FOLLOW UP.
[2020-10-31 20:47] VITALS: BP 144/53
[2020-11-01 04:45] VITALS: BP 142/58; BP 155/59
--- NOTE | 2020-11-01 04:47 | NUR ---
UPON SHIFT REPORT, PT SON AT BEDSIDE DISCUSSING END OF LIFE PREFERENCES WITH PT. WITNESSED DISCUSSION WITH PT. PT EXPRESSING INTEREST IN COMFORT/PALLIATIVE CARE IN REGARDS TO PLAN OF CARE. PROVIDED REASSURANCE TO PT AND PT SON THAT ONCALL MAINTENANCE DIRECTOR TO BE NOTIFIED, SO DAYSHIFT PROVIDERS CAN ADJUST PLAN OF CARE PER PT PREFERENCES. UPON SHIFT ASSESSMENT, PT AOX4. PT DENIES PAIN. PT NOTABLY DYSPNEIC WITH SOB WITH EXERTION, COUGHING, AND TALKING. DYSPNEA NOTED ALONG WITH TACHYPNEA. O2 SATURATIONS ASSESSED 72%, HANDS NOTED TO BE COLD, O2 SATURATION IMPROVED TO 92% WHEN WARMTH APPLIED. PT UNABLE TO MAINTAIN WARMTH DUE TO COMFORT PREFERENCES, FOREHEAD OXIMETER APPLIED. INITIALLY, PT REFUSING TO TRANSITION FROM HIGH FLOW NC TO BIPAP. THROUGHOUT THE NIGHT, PT NOTIFIED STAFF REQUESTING TO BE PUT ON BIPAP PT EXPRESSING DISCOMFORT AND DIFFICULTY RECOVERING FROM LOW O2 SATURATION. BIPAP PLACED, PT O2 SATURATION ASSSESSED AT 100% THEREAFTER. PT TOLERATING PO INTAKE OF PUREED DIET AND NECTAR THICK FLUIDS WITHOUT ISSUE. PT WITHOUT NAUSEA OR EMESIS. PT INTERMITTENTLY VOIDING PER URINAL, INTERMITTENTLY INCONTINENT OF BLADDER. PT INCONTINENT OF BOWEL WITH X1 LOOSE BM THIS SHIFT. PT RESTING IN BED THROUGHOUT SHIFT. FREQUENT REPOSITIONING ENCOURAGED, PT NOTED TO SLIGHTLY SHIFT INDEPENDENTLY, REFUSING REPOSITIONING ASSISTANCE, WEAKNESS NOTED. SENSATION INTACT. PERIPHERAL PULSES NOTED TO BE FAINT IN LLE, EASILY PALPABLE IN REMAINING EXTREMITIES. +2 PITTING EDEMA NOTED IN LLE AND +3 PITTING EDEMA NOTED IN RLE. CAPILLARY REFILL LESS THAN 3SEC THROUGHOUT. PT ENCOURAGED TO NOTIFY STAFF FOR ALL NEEDS, CALL LIGHT WITHIN REACH, BED ALARM ON, BED LOCKED IN LOWEST POSITION, FREQUENT MONITORING WILL CONTINUE.
[2020-11-01 08:10] VITALS: BP 146/60
--- NOTE | 2020-11-01 10:06 | NUR ---
High nutrition screen risk. Chart reviewed, and noted order today for Dr Henderson to discuss comfort care goals. Defer nutrition eval at this time
--- NOTE | 2020-11-01 12:02 | NUR ---
RN INFORMED OTL THAT PT IS NOW ON COMFORT CARE SO D/C OT ORDERS. PT DID NOT RECEIVE EVAL'
--- NOTE | 2020-11-01 13:09 | NUR ---
RN REPORTS PT HAS DECIDED TO TRANSITION TO COMFORT CARE AND P.T. EVAL IS NOT INDICATED AT THIS TIME. REQUEST NEW P.T. ORDER IF MEDICAL STATUS CHANGES AND EVAL IS INDICATED.
--- NOTE | 2020-11-01 15:02 | NUR ---
Pt readmitted to acute care from [facility] with respiratory distress. Pt opting for comfort measures today and is a DNR. Family aware per unit RN and they are coming in to visit. Pt off bipap and on o2 2lnc with morphine/ativan as needed for air hunger. Discussed with the care team and pt is transitioning quickly and is not medically stable/ candidate for hospice house/home eval at this time. Will remain available for support as needed.
[2020-11-01 20:15] VITALS: BP 127/39
--- NOTE | 2020-11-02 03:53 | NUR ---
Assumed pt care at 1900. Pt is very lethargic and comfort care. Family at bedside. Assessment completed and documented. No acute events during the night. Pt is medicated per family request. Continue to monitor. No further needs at this time.
--- NOTE | 2020-11-02 14:48 | NUR ---
Patient rec comfort care at this time. patient was on continuous Bipap now 2 liters for comfort care. Family at bedside. Spoke with family and reviewed. hospice care at home, hospice house and inpatient hospice in hospital. Family wishes patient not transfer from hospital and they feel may not be tolerated. Discussed hospice inpatient and family wishes to pursue. Plan to fax referral to [facility]. Plan to update family when they can eval. Updated phys of family wishes.
--- NOTE | 2020-11-02 17:00 | NUR ---
Assumed pt care at 7am.Pt in bed sleeping with 02 and family at bs. Pt has been on comfort measure since yesterday. Assessment completed.Pt has no distress s/s.Oral care given with lorazepam sublingual.mobile marketing manager updated on dc plan.She notified inpt hospice care team,RN from [facility] here for eval and he said pt was already on medications he wanted to recommend.Repositioned pt for comfort.O2 on as ordered.Will continue to monitor.
== END 2020-11-02 19:25 | disposition hospice, inpatient (51) | DRG 189 ==
LOC: 2N 11:10
PROVIDERS: ADMIT Hospitalist; ATTEND Hospitalist
DX: J96.21 Acute and chronic respiratory failure with hypoxia (principal); K25.4 Chronic or unspecified gastric ulcer with hemorrhage; G93.41 Metabolic encephalopathy; E87.0 Hyperosmolality and hypernatremia; E46 Unspecified protein-calorie malnutrition; D61.818 Other pancytopenia; J84.10 Pulmonary fibrosis, unspecified; J47.9 Bronchiectasis, uncomplicated; R53.81 Other malaise; I10 Essential (primary) hypertension; Z66 Do not resuscitate; E78.5 Hyperlipidemia, unspecified; Z51.5 Encounter for palliative care; R41.0 Disorientation, unspecified; E03.9 Hypothyroidism, unspecified; T50.1X5A Adverse effect of loop [high-ceiling] diuretics, initial encounter; Y92.89 Other specified places as the place of occurrence of the external cause; Z85.038 Personal history of other malignant neoplasm of large intestine; Z68.24 Body mass index [BMI] 24.0-24.9, adult
CPT/HCPCS: 10081; 10194

== ENCOUNTER 2020-11-02 19:32 | Inpatient (IN) | payer OTHER ==
--- NOTE | 2020-11-02 21:44 | NUR ---
At change of shift this RN went in to introduce myself to patient and family member at bedside. At 1934 patient appeared to be in no distress with visable chest rise with respirations. All of the patients family members questions and concerns were address. At 2034 this RN went in to assess patient, upon assessment it was noted that patient was not breathing. No heart sound upon auscultatiions, pupils were fixed and dilated at 4mm. Jacques flaherty RN was second nurse witness for time of at 2035. Family members were notified immediately to include patients son and daughter Samantha. All of the families concerns and questions were addressed.
== END 2020-11-02 20:36 | DRG 189 ==
LOC: 2N 19:32
PROVIDERS: ADMIT Hospitalist; ATTEND Hospitalist
DX: J96.21 Acute and chronic respiratory failure with hypoxia (principal); K92.2 Gastrointestinal hemorrhage, unspecified; J47.9 Bronchiectasis, uncomplicated; I10 Essential (primary) hypertension; E03.9 Hypothyroidism, unspecified; Z66 Do not resuscitate; R53.81 Other malaise; E78.5 Hyperlipidemia, unspecified; Z79.899 Other long term (current) drug therapy
CPT/HCPCS: 10194